=== PATIENT | female | born 1985 | race Caucasian/White ===

== ENCOUNTER 2016-02-13 09:48 | Inpatient (IN) | payer MEDICAID ==
[~2016-02-13] VITALS: Ht 154.9 cm; Wt 62.4 kg
[2016-02-13] MEDS: NICOTINE 21 MG/24 HR TRANSDERM SCH (09:00)
[2016-02-13] MEDS ORDERED: KCL CR 20 MEQ TAB PO ONE (16:36)
[2016-02-13] MEDS ORDERED: POTASSIUM CHLOR 10MEQ -ED ONLY 100 ML IV ONE (16:36)
[2016-02-13] MEDS ORDERED: SODIUM CHLORIDE 0.9% 250 ML IV ONE (16:37)
[2016-02-13] MEDS ORDERED: SODIUM CHLORIDE 0.9% 1,000 ML ONE (18:12)
[2016-02-13] MEDS ORDERED: LORAZEPAM 2 MG TAB PO PRN (19:35)
[2016-02-13] MEDS ORDERED: HALOPERIDOL 5 MG TAB PO PRN (19:35)
[2016-02-13] MEDS ORDERED: DIPHENHYDRAMINE 50 MG/ML VIAL IM PRN (19:35)
[2016-02-13] MEDS ORDERED: MAG HYDROX 30 ML UDC PO PRN (19:35)
[2016-02-13] MEDS ORDERED: TRAZODONE 50 MG TAB PO PRN (19:35)
[2016-02-13] MEDS ORDERED: ALU/MAG/SIM 30 ML UDC PO PRN (19:35)
[2016-02-13] MEDS ORDERED: HALOPERIDOL 5 MG/ML VIAL IM PRN (19:35)
[2016-02-13] MEDS ORDERED: DIPHENHYDRAMINE 50 MG CAP PO PRN (19:35)
[2016-02-13] MEDS ORDERED: LORAZEPAM 2 MG/ML VIAL IM PRN (19:35)
[2016-02-13 20:28] VITALS: BP_SYST 145; RESP 20; TEMP 97; Ht 154.9 cm; Wt 62.4 kg
[2016-02-14 07:13] VITALS: BP_SYST 142; RESP 16; TEMP 97.9
[2016-02-14] MEDS: NICOTINE 21 MG/24 HR TRANSDERM SCH (09:00)
[2016-02-14] MEDS: AMANTADINE 100 MG CAP PO SCH ×2 (14:43→20:59)
[2016-02-14] MEDS: LEVETIRACETAM 500 MG TAB PO SCH ×2 (14:44→20:59)
[2016-02-14 19:41] VITALS: BP_SYST 128; RESP 16; TEMP 98.1
[2016-02-14] MEDS ORDERED: QUETIAPINE XR 50 MG TAB PO SCH (21:00)
[2016-02-15] MEDS: ACETAMINOPHEN 325 MG TAB PO PRN ×2 (08:52→17:22)
[2016-02-15] MEDS: NICOTINE 21 MG/24 HR TRANSDERM SCH (08:53)
[2016-02-15] MEDS: AMANTADINE 100 MG CAP PO SCH ×2 (08:53→21:08)
[2016-02-15] MEDS: LEVETIRACETAM 500 MG TAB PO SCH ×2 (08:53→21:35)
[2016-02-15 09:20] VITALS: BP_SYST 130; RESP 18; TEMP 97.3
[2016-02-15] MEDS ORDERED: QUEtiapine 25 MG TAB PO PRN (09:30)
[2016-02-15] MEDS ORDERED: KCL CR 20 MEQ TAB PO ONE (09:30)
[2016-02-15 19:00] VITALS: BP_SYST 125; RESP 18; TEMP 98
[2016-02-15] MEDS ORDERED: QUETIAPINE XR 300 MG TAB PO SCH (21:00)
[2016-02-16 08:50] VITALS: BP_SYST 117; RESP 16; TEMP 97.7
[2016-02-16] MEDS: AMANTADINE 100 MG CAP PO SCH ×2 (08:55→21:57)
[2016-02-16] MEDS: LEVETIRACETAM 500 MG TAB PO SCH ×2 (08:55→21:57)
[2016-02-16] MEDS: NICOTINE 21 MG/24 HR TRANSDERM SCH (08:59)
[2016-02-16] MEDS: SERTRALINE 50 MG TAB PO SCH (10:28)
[2016-02-16] MEDS: QUEtiapine 100 MG TAB PO SCH ×2 (10:28→21:57)
[2016-02-16 19:00] VITALS: BP_SYST 146; RESP 16; TEMP 98.5
[2016-02-16] MEDS ORDERED: MISSING DOSE XX ONE (20:50)
[2016-02-17 07:57] VITALS: BP_SYST 118; RESP 18; TEMP 98.4
[2016-02-17] MEDS: AMANTADINE 100 MG CAP PO SCH ×2 (08:19→21:15)
[2016-02-17] MEDS: QUEtiapine 100 MG TAB PO SCH (08:19)
[2016-02-17] MEDS: LEVETIRACETAM 500 MG TAB PO SCH ×2 (08:19→21:15)
[2016-02-17] MEDS: SERTRALINE 50 MG TAB PO SCH (08:19)
[2016-02-17] MEDS: NICOTINE 21 MG/24 HR TRANSDERM SCH (08:19)
[2016-02-17 19:12] VITALS: BP_SYST 142; RESP 16; TEMP 98.2
[2016-02-17] MEDS: OLANZAPINE 10 MG TAB PO SCH (21:17)
[2016-02-18] MEDS: AMANTADINE 100 MG CAP PO SCH ×2 (08:54→21:33)
[2016-02-18] MEDS: OLANZAPINE 5 MG TAB PO SCH (08:55)
[2016-02-18] MEDS: NICOTINE 21 MG/24 HR TRANSDERM SCH (08:55)
[2016-02-18] MEDS: LEVETIRACETAM 500 MG TAB PO SCH ×2 (08:55→21:33)
[2016-02-18] MEDS: SERTRALINE 50 MG TAB PO SCH (08:55)
[2016-02-18 09:02] VITALS: BP_SYST 121; RESP 16; TEMP 97.8
[2016-02-18 19:02] VITALS: BP_SYST 122; RESP 16; TEMP 98
[2016-02-18] MEDS: OLANZAPINE 10 MG TAB PO SCH (21:33)
[2016-02-19 08:11] VITALS: BP_SYST 115; RESP 16; TEMP 97.4
[2016-02-19] MEDS: OLANZAPINE 5 MG TAB PO SCH (08:35)
[2016-02-19] MEDS: LEVETIRACETAM 500 MG TAB PO SCH (08:35)
[2016-02-19] MEDS: AMANTADINE 100 MG CAP PO SCH (08:35)
[2016-02-19] MEDS: SERTRALINE 50 MG TAB PO SCH (08:35)
[2016-02-19] MEDS: NICOTINE 21 MG/24 HR TRANSDERM SCH (08:36)
[2016-02-19 10:28] VITALS: BP_SYST 115; RESP 16; TEMP 97.4
[2016-02-19 12:25] VITALS: BP_SYST 115; RESP 16; TEMP 97.4
== END 2016-02-19 13:49 | disposition home or self-care (01) | DRG 897 ==
LOC: ENRESERVTM → ENRESERVDT → ER 09:48 → EMR 19:29 → PSY 19:47
PROVIDERS: ADMIT Psychiatry & Neurology Psychiatry; ATTEND Psychiatry & Neurology Psychiatry
DX: F10.20 Alcohol dependence, uncomplicated (principal); G10 Huntington's disease; E87.6 Hypokalemia; G40.909 Epilepsy, unspecified, not intractable, without status epilepticus
CPT/HCPCS: 36415; 80048; 80053; 81001; 84439; 84443; 85025; 85610; 87088

== ENCOUNTER 2016-03-04 12:46 | Inpatient (IN) | payer MEDICAID ==
[~2016-03-04] VITALS: Ht 154.9 cm; Wt 63.5 kg
[2016-03-04] MEDS ORDERED: LORAZEPAM 2 MG/ML VIAL IM PRN ×2 (13:30→15:15)
[2016-03-04] MEDS ORDERED: ALU/MAG/SIM 30 ML UDC PO PRN (13:30)
[2016-03-04] MEDS ORDERED: MAG HYDROX 30 ML UDC PO PRN (13:30)
[2016-03-04] MEDS ORDERED: DIPHENHYDRAMINE 50 MG/ML VIAL IM PRN (13:30)
[2016-03-04] MEDS: MULTIVITS/MINERALS (THERAGRAN M) TAB PO SCH (14:07)
[2016-03-04 14:22] VITALS: BP_SYST 146; RESP 20; TEMP 98.9
[2016-03-04 14:23] VITALS: Ht 154.9 cm; Wt 63.5 kg
[2016-03-04] MEDS: NICOTINE 21 MG/24 HR TRANSDERM SCH (14:27)
[2016-03-04] MEDS ORDERED: OLANZAPINE 10 MG TAB PO PRN (15:15)
[2016-03-04] MEDS ORDERED: LORAZEPAM 2 MG TAB PO PRN (15:15)
[2016-03-04] MEDS ORDERED: PROMETHAZINE 25 MG TAB PO PRN (15:15)
[2016-03-04] MEDS ORDERED: THIAMINE 100 MG TAB PO ONE (15:15)
[2016-03-04 16:00] VITALS: BP_SYST 134; RESP 18; TEMP 98.9
[2016-03-04] MEDS: ACETAMINOPHEN 325 MG TAB PO PRN (17:25)
[2016-03-04] MEDS ORDERED: MISSING DOSE XX ONE (17:45)
[2016-03-04 18:00] VITALS: BP_SYST 127; RESP 18; TEMP 98.9
[2016-03-04 19:45] VITALS: BP_SYST 135; RESP 18; TEMP 99
[2016-03-04 20:00] VITALS: BP_SYST 143; RESP 18
[2016-03-04] MEDS: AMANTADINE 100 MG CAP PO SCH (20:55)
[2016-03-04] MEDS: LEVETIRACETAM 500 MG TAB PO SCH (20:55)
[2016-03-04] MEDS: TRAZODONE 50 MG TAB PO PRN (22:01)
[2016-03-05] VITALS (10 sets, daily range): BP systolic 108–142; RESP 16–20; TEMP 97.6–98.7
[2016-03-05] MEDS ORDERED: MULTIVITS/MINERALS (THERAGRAN M) TAB PO SCH (09:00)
[2016-03-05] MEDS: AMANTADINE 100 MG CAP PO SCH ×2 (09:23→21:10)
[2016-03-05] MEDS: LEVETIRACETAM 500 MG TAB PO SCH ×2 (09:23→21:10)
[2016-03-05] MEDS: THIAMINE 100 MG TAB PO SCH (09:23)
[2016-03-05] MEDS: FOLIC ACID 1 MG TAB PO SCH (09:23)
[2016-03-05] MEDS: MULTIVITS/MINERALS (THERAGRAN M) TAB PO SCH (09:24)
[2016-03-05] MEDS: NICOTINE 21 MG/24 HR TRANSDERM SCH (09:30)
[2016-03-05] MEDS: ACETAMINOPHEN 325 MG TAB PO PRN (18:07)
[2016-03-05] MEDS ORDERED: OLANZAPINE 10 MG TAB PO SCH (21:00)
[2016-03-05] MEDS: TRAZODONE 50 MG TAB PO PRN (21:10)
[2016-03-06 07:40] VITALS: BP_SYST 109; RESP 18; TEMP 98.4
[2016-03-06] MEDS: AMANTADINE 100 MG CAP PO SCH ×2 (08:27→20:56)
[2016-03-06] MEDS: LEVETIRACETAM 500 MG TAB PO SCH ×2 (08:28→20:56)
[2016-03-06] MEDS: THIAMINE 100 MG TAB PO SCH (08:28)
[2016-03-06] MEDS: FOLIC ACID 1 MG TAB PO SCH (08:28)
[2016-03-06] MEDS: MULTIVITS/MINERALS (THERAGRAN M) TAB PO SCH (08:28)
[2016-03-06] MEDS: NICOTINE 21 MG/24 HR TRANSDERM SCH (08:39)
[2016-03-06 09:05] VITALS: BP_SYST 138; RESP 18; TEMP 98.1
[2016-03-06 12:01] VITALS: BP_SYST 119; RESP 18
[2016-03-06] MEDS ORDERED: OLANZAPINE 10 MG TAB PO PRN (15:15)
[2016-03-06 20:41] VITALS: BP_SYST 138; RESP 18; TEMP 98.8
[2016-03-06] MEDS: TRAZODONE 50 MG TAB PO PRN (20:56)
[2016-03-06] MEDS ORDERED: OLANZAPINE 5 MG TAB PO SCH (21:00)
[2016-03-07 04:00] VITALS: BP_SYST 137; RESP 20; TEMP 98.1
[2016-03-07] MEDS: LORAZEPAM 2 MG TAB PO PRN ×2 (05:44→23:36)
[2016-03-07 07:18] VITALS: BP_SYST 133; RESP 18; TEMP 97.6
[2016-03-07] MEDS: AMANTADINE 100 MG CAP PO SCH ×2 (09:00→21:16)
[2016-03-07] MEDS: NICOTINE 21 MG/24 HR TRANSDERM SCH (09:00)
[2016-03-07] MEDS: THIAMINE 100 MG TAB PO SCH (09:00)
[2016-03-07] MEDS: LEVETIRACETAM 500 MG TAB PO SCH ×2 (09:00→21:16)
[2016-03-07] MEDS: MULTIVITS/MINERALS (THERAGRAN M) TAB PO SCH (09:00)
[2016-03-07] MEDS: QUEtiapine 25 MG TAB PO PRN ×3 (13:07→22:49)
[2016-03-07 13:26] VITALS: BP_SYST 139; RESP 18
[2016-03-07] MEDS: ACETAMINOPHEN 325 MG TAB PO PRN (14:49)
[2016-03-07 17:00] VITALS: BP_SYST 112; RESP 20; TEMP 97.5
[2016-03-07 19:00] VITALS: BP_SYST 117; RESP 20; TEMP 97.7
[2016-03-07] MEDS ORDERED: QUEtiapine 100 MG TAB PO SCH (21:00)
[2016-03-07] MEDS: TRAZODONE 50 MG TAB PO SCH (21:16)
[2016-03-07 21:30] VITALS: BP_SYST 162; RESP 20
[2016-03-07] MEDS: DIPHENHYDRAMINE 50 MG CAP PO PRN (23:36)
[2016-03-08 03:47] VITALS: BP_SYST 129; RESP 20; TEMP 97.4
[2016-03-08] MEDS: ACETAMINOPHEN 325 MG TAB PO PRN ×2 (03:51→16:22)
[2016-03-08] MEDS: AMANTADINE 100 MG CAP PO SCH ×2 (08:19→21:09)
[2016-03-08] MEDS: MULTIVITS/MINERALS (THERAGRAN M) TAB PO SCH (08:19)
[2016-03-08] MEDS: NICOTINE 21 MG/24 HR TRANSDERM SCH (08:19)
[2016-03-08] MEDS: LEVETIRACETAM 500 MG TAB PO SCH ×2 (08:19→21:09)
[2016-03-08 08:20] VITALS: BP_SYST 143; RESP 20; TEMP 97.1
[2016-03-08] MEDS: QUEtiapine 100 MG TAB PO SCH ×2 (10:59→21:09)
[2016-03-08] MEDS: QUEtiapine 25 MG TAB PO PRN (15:12)
[2016-03-08] MEDS: TRAZODONE 50 MG TAB PO SCH (21:09)
[2016-03-09] MEDS: MULTIVITS/MINERALS (THERAGRAN M) TAB PO SCH (08:38)
[2016-03-09] MEDS: LEVETIRACETAM 500 MG TAB PO SCH ×2 (08:38→21:55)
[2016-03-09] MEDS: QUEtiapine 100 MG TAB PO SCH (08:38)
[2016-03-09] MEDS: AMANTADINE 100 MG CAP PO SCH ×2 (08:38→21:55)
[2016-03-09] MEDS: NICOTINE 21 MG/24 HR TRANSDERM SCH (09:00)
[2016-03-09 09:03] VITALS: BP_SYST 124; RESP 20; TEMP 97.5
[2016-03-09] MEDS ORDERED: HALOPERIDOL 5 MG/ML VIAL IM PRN (12:05)
[2016-03-09] MEDS: DIPHENHYDRAMINE 50 MG CAP PO PRN (12:17)
[2016-03-09] MEDS: HALOPERIDOL 5 MG TAB PO PRN (12:17)
[2016-03-09] MEDS: LORAZEPAM 2 MG TAB PO PRN (12:17)
[2016-03-09] MEDS ORDERED: QUEtiapine 200 MG TAB PO SCH (19:00)
[2016-03-09 20:47] VITALS: BP_SYST 125; RESP 18; TEMP 98.3
[2016-03-09] MEDS: TRAZODONE 50 MG TAB PO SCH (21:55)
[2016-03-10] MEDS: LORAZEPAM 2 MG TAB PO PRN (00:17)
[2016-03-10] MEDS: HALOPERIDOL 5 MG TAB PO PRN (00:17)
[2016-03-10] MEDS: DIPHENHYDRAMINE 50 MG CAP PO PRN (00:17)
[2016-03-10] MEDS: ACETAMINOPHEN 325 MG TAB PO PRN (03:16)
[2016-03-10] MEDS ORDERED: OLANZAPINE 10 MG TAB PO ONE (08:10)
[2016-03-10] MEDS: MULTIVITS/MINERALS (THERAGRAN M) TAB PO SCH (08:52)
[2016-03-10] MEDS: LEVETIRACETAM 500 MG TAB PO SCH ×2 (08:52→21:00)
[2016-03-10] MEDS: AMANTADINE 100 MG CAP PO SCH ×2 (08:52→21:00)
[2016-03-10] MEDS: NICOTINE 21 MG/24 HR TRANSDERM SCH (08:52)
[2016-03-10] MEDS ORDERED: QUEtiapine 100 MG TAB PO SCH (09:00)
[2016-03-10] MEDS: risperiDONE 3 MG TAB PO SCH ×2 (11:10→21:00)
[2016-03-10 11:11] VITALS: BP_SYST 108; RESP 16; TEMP 97.7
[2016-03-10 19:39] VITALS: BP_SYST 132; RESP 18; TEMP 97.8
[2016-03-10] MEDS: TRAZODONE 50 MG TAB PO SCH (21:00)
[2016-03-11 07:44] VITALS: BP_SYST 116; RESP 16
[2016-03-11] MEDS: AMANTADINE 100 MG CAP PO SCH ×2 (09:37→21:21)
[2016-03-11] MEDS: risperiDONE 3 MG TAB PO SCH ×2 (09:37→21:22)
[2016-03-11] MEDS: LEVETIRACETAM 500 MG TAB PO SCH ×2 (09:37→21:21)
[2016-03-11] MEDS: MULTIVITS/MINERALS (THERAGRAN M) TAB PO SCH (09:37)
[2016-03-11] MEDS: NICOTINE 21 MG/24 HR TRANSDERM SCH (09:37)
[2016-03-11 20:54] VITALS: BP_SYST 117; RESP 20; TEMP 98.3
[2016-03-11] MEDS: TRAZODONE 50 MG TAB PO SCH (21:21)
[2016-03-12] MEDS: LEVETIRACETAM 500 MG TAB PO SCH ×2 (08:52→20:20)
[2016-03-12] MEDS: NICOTINE 21 MG/24 HR TRANSDERM SCH (08:52)
[2016-03-12] MEDS: risperiDONE 3 MG TAB PO SCH ×2 (08:52→20:20)
[2016-03-12] MEDS: MULTIVITS/MINERALS (THERAGRAN M) TAB PO SCH (08:52)
[2016-03-12] MEDS: AMANTADINE 100 MG CAP PO SCH ×2 (08:52→20:20)
[2016-03-12 09:21] VITALS: BP_SYST 126; RESP 18
[2016-03-12 19:01] VITALS: BP_SYST 137; RESP 16; TEMP 98
[2016-03-12] MEDS: TRAZODONE 50 MG TAB PO SCH (20:20)
[2016-03-13] MEDS: ACETAMINOPHEN 325 MG TAB PO PRN ×4 (06:02→20:30)
[2016-03-13 07:22] VITALS: BP_SYST 113; RESP 17; TEMP 98.5
[2016-03-13] MEDS: NICOTINE 21 MG/24 HR TRANSDERM SCH (08:13)
[2016-03-13] MEDS: MULTIVITS/MINERALS (THERAGRAN M) TAB PO SCH (08:13)
[2016-03-13] MEDS: LEVETIRACETAM 500 MG TAB PO SCH ×2 (08:13→20:28)
[2016-03-13] MEDS: risperiDONE 3 MG TAB PO SCH ×2 (08:13→20:28)
[2016-03-13] MEDS: AMANTADINE 100 MG CAP PO SCH ×2 (08:13→20:28)
[2016-03-13 19:03] VITALS: BP_SYST 122; RESP 16; TEMP 98.2
[2016-03-13] MEDS: TRAZODONE 50 MG TAB PO SCH (20:28)
[2016-03-14] MEDS: MULTIVITS/MINERALS (THERAGRAN M) TAB PO SCH (08:45)
[2016-03-14] MEDS: AMANTADINE 100 MG CAP PO SCH (08:49)
[2016-03-14] MEDS: LEVETIRACETAM 500 MG TAB PO SCH (08:49)
[2016-03-14] MEDS: ACETAMINOPHEN 325 MG TAB PO PRN (08:50)
[2016-03-14] MEDS: NICOTINE 21 MG/24 HR TRANSDERM SCH (08:50)
[2016-03-14] MEDS: risperiDONE 3 MG TAB PO SCH (08:50)
[2016-03-14 09:00] VITALS: BP_SYST 122; RESP 16; TEMP 98.2
[2016-03-14 09:31] VITALS: BP_SYST 118; RESP 18; TEMP 97.4
[2016-03-14] MEDS ORDERED: INVEGA SUSTENNA 234 MG/1.5 ML IM ONE (09:40)
== END 2016-03-14 13:10 | disposition home or self-care (01) | DRG 885 ==
LOC: PSY 12:47
PROVIDERS: ADMIT Psychiatry & Neurology Psychiatry; ATTEND Psychiatry & Neurology Psychiatry
DX: F29 Unspecified psychosis not due to a substance or known physiological condition (principal); G10 Huntington's disease; F10.10 Alcohol abuse, uncomplicated; G40.909 Epilepsy, unspecified, not intractable, without status epilepticus
CPT/HCPCS: 80053; 80307; 80320; 81001; 81025; 84439; 84443; 85025